=== PATIENT | male | born 1960 | race Caucasian/White ===

== ENCOUNTER 2016-08-25 18:57 | Emergency (ER) | payer OTHER | END 2016-08-25 19:58 | disposition other institution (70) | LOC: ED 18:57 | DX: Z02.89 Encounter for other administrative examinations (principal) ==

== ENCOUNTER 2016-08-25 18:57 | Emergency (ER) | payer OTHER ==
[~2016-08-25] VITALS: Ht 167.6 cm; Wt 68.0 kg
[2016-08-25 19:58] VITALS: BP 165/91
== END 2016-08-25 19:58 | disposition other institution (70) ==
LOC: ED 18:57
DX: Z02.89 Encounter for other administrative examinations (principal); J44.9 Chronic obstructive pulmonary disease, unspecified; I10 Essential (primary) hypertension; F12.10 Cannabis abuse, uncomplicated; Z88.0 Allergy status to penicillin
CPT/HCPCS: J7613; J7644